=== PATIENT | male | born 1970 | race Caucasian/White ===

== ENCOUNTER 2020-03-04 01:21 | Emergency (ER) | payer MEDICAID, SELFPAY ==
[2020-03-04 01:22] VITALS: BP 109/73; PULSE 100; RESP 18; TEMP 37.8; O2SAT 96; BMI 26.7
--- NOTE | 2020-03-04 01:42 | CT_ITS ---
PROCEDURE: CT ABDOMEN PELVIS WO CON CLINICAL INDICATION: bilat flank pain Bilateral flank pain with vomiting and constipation, history of testicular cancer COMPARISON: No exams were available for comparison TECHNIQUE: Axial images obtained with sagittal and coronal reformats. All CT scans at the facility use one or more dose reduction, viz: automated exposure control, ma/kV adjustment per patient size (including targeted exams where dose is matched to indication, i.e. head), or iterative reconstruction technique. FINDINGS: LOWER THORAX: No acute finding ABDOMEN & PELVIS: The liver, spleen, adrenal glands, pancreas, gallbladder an unremarkable appearance. There is right nephrolithiasis with scattered small stones measuring up 3 mm. No hydronephrosis. No ureteral calculi. There is a mild amount of retained colonic feces. No evidence of appendicitis intestinal obstruction free air or diverticulitis. No acute bony findings. IMPRESSION: 1. No acute abdominal or pelvic findings. 2. Nonobstructing right nephrolithiasis. 3. Mild amount of retained colonic feces Dictated by: Toy Garcia MD 03/04/2020 05:48 Toy Garcia MD in [place] 03/04/2020 05:48
[2020-03-04 01:48] LABS: Microscopic, Urine URINE MICROSCOPIC (MICROSCOPIC)
--- NOTE | 2020-03-04 01:48 | [facility].EDGENADL ---
ED Disposition Clinical Impression: Flank pain, acute, Elevated LFTs Disposition: Home, Self-Care Condition on Discharge: Good Instructions: DI for Acute Pain -- Adult Additional Instructions: fluids and see pcp for follow up of liver enz - Critical Care Critical Care Time: No Attestation: On , the high probability of a clinically significant, sudden or life threatening deterioration of the following system(s) required my full and direct attention, intervention and personal management. The time I documented below is in addition to time spent performing reported procedures but includes the following listed in this critical care notation. Medical Decision Making - Medical Records Medical records reviewed: Yes: I reviewed the patient's medical records. - [place] Inquiry Pt receiving controlled substance: No Vital Signs: 03/04/20 01:22 Temperature 100.1 F H Temperature Source Oral Pulse Rate [Right] 100 H Respiratory Rate 18 Blood Pressure [Right Arm] 109/73 L Blood Pressure Mean [Right Arm] 85 Blood Pressure Source [Right Arm] Automatic Cuff Blood Pressure Position [Right Arm] Sitting 02 Sat by Pulse Oximetry 96 Oxygen Delivery Method Room Air - Lab Data Lab results reviewed: Yes: I reviewed the patient's lab results. Lab Results 03/04/20 01:35: Urine Color [place], Urine Appearance Clear, Urine pH 6.0, Ur Specific Pierz >= 1.030, Urine Protein 2+, Urine Glucose (UA) Negative, Urine Ketones Negative, Urine Blood Negative, Urine Nitrate Negative, Urine Bilirubin Negative, Urine Urobilinogen 4.0, Ur Leukocyte Esterase Negative, Urine WBC Occasional, Ur Squamous Epith Cells Occasional, Urine Bacteria Trace 03/04/20 01:35: WBC 5.1, RBC 4.71, Hgb 15.2, Hct 43.4, MCV 92.0, MCH 32.3 H, MCHC 35.1, RDW 13.6, Plt Count 103 L, MPV 8.4, Neut % (Auto) 82.0 H, Lymph % (Auto) 9.2 L, [place] % (Auto) 5.2, Eos % (Auto) 3.2, Baso % (Auto) 0.4, Neut # (Auto) 4.2, Lymph # (Auto) 0.5 L, [place] # (Auto) 0.3, Eos # (Auto) 0.2, Baso # (Auto) 0.0 03/04/20 01:35: Sodium 133 L, Potassium 3.7, Chloride 98, Carbon Dioxide 25, Anion Gap 13.7, BUN 18, Creatinine 0.90, Estimated Creat Clear 113, Estimated GFR 90, Est GFR ( Amer) 109, Glucose 124 H, Calcium 9.3, Total Bilirubin 2.8 H, AST 565 H*, ALT 588 H*, Alkaline Phosphatase 469 H, Total Protein 7.8, Albumin 4.0, Globulin 3.8 H, Albumin/Globulin Ratio 1.1 Result diagrams: 03/04/20 01:35 03/04/20 01:35 Orders (Tests/Meds): ED MEDICATIONS Generic Name Dose Route Start Last Admin Trade Name Freq PRN Reason Stop Dose Admin Sodium Chloride 1,000 mls @ 999 mls/hr 03/04/20 01:45 03/04/20 01:42 Sod Chlor 0.9% 1000ml Bag IV 03/04/20 02:45 999 mls/hr .Q1H1M FIDELIA Administration Discontinued Medications Generic Name Dose Route Start Last Admin Trade Name Freq PRN Reason Stop Dose Admin Ondansetron HCl 4 mg 03/04/20 01:36 03/04/20 01:42 Zofran 4mg/2ml Vial IV 03/04/20 01:37 4 mg ONCE ONE Administration ORDERS Category Date Time Status CT abdomen pelvis wo con Stat Cat Scan 03/04/20 01:42 Taken - CT Data CT Scan: Abdomen, Pelvis Time Received: 03:[address] Reviewed: Yes: I have viewed the radiologist's interpretation Preliminary Findings: Abnormal (see report ) General Adult HPI - General Chief complaint: PAIN Stated complaint: Flank Pain Time Seen by Provider: 03/04/20 01:40 Mode of Arrival: EMS Source of Information: Patient, EMS, Medical Record Limitations: No Limitations Description of Symptoms (Recalled from ER Triage Doc. by RN): Pt from [facility] C/O flank pain, states he has HX of kidney stones and this feels the same. 30mg Toradol IV given in route by EMS - History of Present Illness HPI narrative: rt flank pain with hx of kidney stones Onset (ago): day(s) Radiation: flank Severity: moderate Associated symptoms: denies other symptoms Treatments prior to arrival: none - Related Data Home Medications Medica
[2020-03-04 01:50] LABS: Appearance,Urine CLEAR (Clear); Blood, Urine Negative (Negative); Glucose,Urine (UA) Negative (Negative); Ketones,Urine Negative (Negative); Leukocyte Esterase,Urine Negative (Negative); Nitrate,Urine Negative (Negative); Protein,Urine 2+ (Negative); Specific Gravity, Urine >= 1.030 (1.005-1.030)
[2020-03-04 01:54] LABS: Bilirubin,Urine Negative (Negative); Color,Urine Orange (Yellow)
[2020-03-04 01:55] LABS: Basophils % 0.4 % (0.1-2.0); Eosinophils # 0.2 K/mm3 (0.0-0.4); Eosinophils % 3.2 % (0.1-12.0); Hematocrit 43.4 % (42.0-52.0); Hemoglobin 15.2 g/dL (14.1-18.0); Lymphocytes # 0.5 K/mm3 (0.7-4.5); Lymphocytes % 9.2 % (10-50); Mean Corpuscular HGB Conc 35.1 g/dL (31.8-35.4); Mean Corpuscular Hemoglobin 32.3 pg (27.0-31.2); Mean Platelet Volume 8.4 fl (7.4-10.4); Monocytes # 0.3 K/mm3 (0.1-1.0); Monocytes % 5.2 % (1.7-9.3); Neutrophils # 4.2 K/mm3 (1.8-7.8); Platelet Count 103 K/mm3 (142-424); Red Blood Count 4.71 M/mm3 (4.60-6.20); Red Cell Distribution Width 13.6 % (11.5-17.5); White Blood Count 5.1 K/mm3 (4.8-10.8)
[2020-03-04 02:00] LABS: Alanine Aminotransferase 588 U/L (12-78); Albumin/Globulin Ratio 1.1 (1.1-1.8); Alkaline Phosphatase 469 U/L (38-126); Anion Gap 13.7 mEq/L (5-15); Aspartate Amino Transferase 565 U/L (17-59); Bilirubin,Total 2.8 mg/dl (0.2-1.3); Blood Urea Nitrogen 18 mg/dl (9-20); Calcium 9.3 mg/dl (8.4-10.2); Carbon Dioxide 25 mmol/L (22.0-30.0); Chloride 98 mmol/L (98-107); Creatinine Clearance Estimated 113 mL/min (50-200); Estimated Glomerular Filt Rate 90 ml/min (>60); GFR (African American) 109 ML/MIN (>60); Globulin 3.8 g/dL (1.3-3.2); Glucose 124 mg/dl (74-100); Potassium 3.7 mmoL/L (3.5-5.1); Sodium 133 mmol/L (136-145); Total Protein,Serum 7.8 g/dl (6.3-8.2)
[2020-03-04 02:13] LABS: Bacteria,Urine Trace /lpf; Squamous Epithelial Cell,Urine Occasional #/hpf (0-5); WBC,Urine Occasional #/hpf (0-3)
[2020-03-04 04:01] VITALS: BP 110/78; PULSE 89; RESP 17; TEMP 37.8
== END 2020-03-04 04:18 | disposition home or self-care (01) ==
LOC: ER 04:16
PROVIDERS: Emergency Provider Emergency Medicine
DX: R10.12 Left upper quadrant pain (principal); Z87.442 Personal history of urinary calculi; R94.5 Abnormal results of liver function studies; F17.210 Nicotine dependence, cigarettes, uncomplicated; F19.10 Other psychoactive substance abuse, uncomplicated
CPT/HCPCS: 74176; 80053; 81001; 85025; 96365; 96375; 99283; J2405